=== PATIENT | female | born 1955 | race Caucasian/White ===

== ENCOUNTER 2018-10-05 14:27 | Emergency (ER) | payer OTHER ==
[~2018-10-05] VITALS: Ht 132.1 cm; Wt 71.8 kg
[2018-10-05 14:37] VITALS: BP 156/97
--- NOTE | 2018-10-05 16:26 | NUR ---
PT AMBULATED TO BED 1
--- NOTE | 2018-10-05 16:30 | NUR ---
c/o posterior headache with nausea x 1 month denies injury ---insomnia, fatigue hx---dm, asthma, htn, arthritis, hyperlipidemia rx----basaglar, remicade, humalog insulin, glipizide, losartan, hctz, amitriptyline, daliresp, montelukast, amlodipine, asa, apriso, donepezil, naproxen, ropinirole, tylenol, methotrexate
[2018-10-05] MEDS ORDERED: PROMETHAZINE 25 MG/ML VIAL IM ONE (17:05)
[2018-10-05] MEDS ORDERED: MORPHINE SULFATE 2 MG/ML SYR IM ONE (17:05)
[2018-10-05] MEDS ORDERED: KETOROLAC 60 MG/2 ML VIAL IM ONE (17:05)
[2018-10-05] MEDS ORDERED: MORPHINE SULFATE 4 MG/ML SYR ONE ×2 (17:22→17:36)
--- NOTE | 2018-10-05 18:30 | NUR ---
PATIENT RESTING AT THIS TIME. NO SIGNS OF DISTRESS.
[2018-10-05 19:30] VITALS: BP 140/85
--- NOTE | 2018-10-05 19:30 | NUR ---
Patient discharged with v/s stable. Written and verbal after care instructions given and explained. Patient alert, oriented and verbalized understanding of instructions. Ambulatory with steady gait. All questions addressed prior to discharge. ID band removed. Patient advised to follow up with PMD. Rx of FIORICET [id number] given. Patient educated on indication of medication including possible reaction and side effects. Opportunity to ask questions provided and answered.
== END 2018-10-05 19:30 | disposition home or self-care (01) ==
LOC: MED 14:27
DX: G44.229 Chronic tension-type headache, not intractable (principal); Z86.73 Personal history of transient ischemic attack (TIA), and cerebral infarction without residual deficits
CPT/HCPCS: 70450; 96372; 99284; J1885; J2270; J2550

== ENCOUNTER 2019-12-06 16:41 | Emergency (ER) | payer OTHER ==
[~2019-12-06] VITALS: Ht 139.7 cm; Wt 76.9 kg
[2019-12-06 16:53] VITALS: BP 149/97
--- NOTE | 2019-12-06 17:30 | NUR ---
BIB SELF C/O SOB, COUGH, SORE THROAT, CHEST PAIN X 3 DAYS. TOOK ASHTMA MEDICATION W/O RELIEF .PT AWAKE ,ALERT, AFEBRILE , AMBULATORY WITH STEADY GAIT. SCE , CBS, NICRD HX: ASTHMA
[2019-12-06] MEDS: ALBUTEROL 0.083% 2.5 MG/3 ML NEBU INH ONE (17:37)
[2019-12-06] MEDS: IPRATROPIUM 0.02% 0.5 MG/2.5 ML NEBU INH ONE (17:37)
--- NOTE | 2019-12-06 17:37 | NUR ---
[facility]AT[facility] DRUGS GIVEN ORDERED ENCOURAGED PATIENT FOR INTERMITENT DEEP BREATHING DURING THERAPY
--- NOTE | 2019-12-06 17:40 | NUR ---
RT AT BEDSIDE.
[2019-12-06] MEDS: predniSONE 20 MG TAB PO ONE (17:47)
--- NOTE | 2019-12-06 18:05 | NUR ---
RT DONE WITH BREATHING TREATMENT.
--- NOTE | 2019-12-06 18:27 | NUR ---
Pt report received from PAZ Ferguson. Transfer of care at this time.
--- NOTE | 2019-12-06 18:27 | NUR ---
GAVE REPORT TO PAZ KILGORE .PT VS STABLE O2 SAT AT 100 PERCENT.PT AWAKE, ALERT.
[2019-12-06 19:25] VITALS: BP 119/66
--- NOTE | 2019-12-06 19:25 | NUR ---
Patient discharged with v/s stable. Written and verbal after care instructions given and explained. Patient alert, oriented and verbalized understanding of instructions. Ambulatory with steady gait. All questions addressed prior to discharge. ID band removed. Patient advised to follow up with PMD. Rx of albuterol, prednisone, tamiflu, and zofran given. Patient educated on indication of medication including possible reaction and side effects. Opportunity to ask questions provided and answered.
[2019-12-06] MEDS: OSELTAMIVIR PHOSPHATE 75 MG CAP PO ONE (19:36)
== END 2019-12-06 19:25 | disposition home or self-care (01) ==
LOC: MED 16:41
DX: J11.1 Influenza due to unidentified influenza virus with other respiratory manifestations (principal); J45.901 Unspecified asthma with (acute) exacerbation; E11.9 Type 2 diabetes mellitus without complications; I10 Essential (primary) hypertension; Z90.49 Acquired absence of other specified parts of digestive tract; Z98.890 Other specified postprocedural states
CPT/HCPCS: 71045; 87804; 94640; 99284; J7512; J7613; J7644

== ENCOUNTER 2019-12-12 16:38 | Emergency (ER) | payer OTHER ==
[~2019-12-12] VITALS: Ht 139.7 cm; Wt 74.8 kg
[2019-12-12 16:55] VITALS: BP 146/87
--- NOTE | 2019-12-12 17:00 | NUR ---
64 Y/O F C/O LOWER ABDOMINAL PAIN 6/10 WITH FEVER X 1 DAY. TEMPERATURE IN THE ED IS 99.5. PT DENIES N/V. PT ABDOMEN IS SOFT, ABDOMEN IS TENDER TO TOUCH, BOWEL SOUNDS PRESENT IN ALL FOUR QUADRANTS. PT AMBULATED TO RESTROOM WITHOUT DIFFICULTY TO GIVE URINE SAMPLE. POSITIONED FOR COMFORT, BED LOWERED, SIDE RAIL X [address] NKA
--- NOTE | 2019-12-12 17:00 | NUR ---
PT W/C ASSISTED TO BED 1.
[2019-12-12] MEDS ORDERED: IBUPROFEN 600 MG TAB PO ONE (17:45)
[2019-12-12 18:41] VITALS: BP 146/87
--- NOTE | 2019-12-12 18:41 | NUR ---
Patient discharged with v/s stable. Written and verbal after care instructions given and explained. Patient alert, oriented and verbalized understanding of instructions. Ambulatory with steady gait. All questions addressed prior to discharge. ID band removed. Patient advised to follow up with PMD. Rx of MOTRIN, TAMIFLU, TYLENOL, MACROBID given. Patient educated on indication of medication including possible reaction and side effects. Opportunity to ask questions provided and answered.
== END 2019-12-12 18:41 | disposition home or self-care (01) ==
LOC: MED 16:38
DX: J11.1 Influenza due to unidentified influenza virus with other respiratory manifestations (principal); J45.909 Unspecified asthma, uncomplicated; E11.9 Type 2 diabetes mellitus without complications; I10 Essential (primary) hypertension
CPT/HCPCS: 71045; 81002; 87804; 99284; Q0092

== ENCOUNTER 2020-01-27 04:50 | Emergency (ER) | payer OTHER ==
[~2020-01-27] VITALS: Ht 152.4 cm; Wt 73.9 kg
[2020-01-27 04:55] VITALS: BP 143/93
--- NOTE | 2020-01-27 05:00 | NUR ---
PT AMBULATED TO BED #7
--- NOTE | 2020-01-27 05:05 | NUR ---
BS: 164. MADE AWARE. NO NEW ORDERS AT THIS TIME.
--- NOTE | 2020-01-27 05:05 | NUR ---
PT 64 Y/O FEMALE BIB SELF FOR C/O 1010 LUQ AND PAIN RADIATING TO L SIDE X 5 DAYS. PT AAOX 4. PER PT PAIN,"COMES AND GOES." ABD IS ROUND, SOFT, AND TENDER TO TOUCH. PT ALSO HAS C/O NAUSEA, BLOATING, AND CONSTIPATION. BS PRESENT X 4. PT STATES LAST BM WAS 01/26/20 BUT WAS SMALL AND HARD. AFEBRILE. PT RESPIRATIONS ARE EVEN AND UNLABORED. BED LOCKED AND IN LOWEST POSITION. MEDHX: HTN, DM TYPE II ALLERGIES: NKA
--- NOTE | 2020-01-27 05:05 | NUR ---
PT DAUGHTER AT BEDSIDE.
[2020-01-27] MEDS ORDERED: ONDANSETRON 4 MG/2 ML VIAL IVP ONE (05:15)
[2020-01-27] MEDS ORDERED: MORPHINE SULFATE 2 MG/ML SYR IVP ONE (05:15)
--- NOTE | 2020-01-27 05:32 | NUR ---
IV PLACED IN L AC 20G. IV SITE IS PATENT. NO SWELLING OR C/O PAIN AT SITE. LABS COLLECTED.
--- NOTE | 2020-01-27 05:55 | NUR ---
IV SITE PATENT. MOPHINE 2MG, ZOFRAN 4 MG, GIVEN FOR 10/10 ABD PAIN AND NAUSEA.
[2020-01-27 06:17] LABS: APPEARANCE,URINE CLEAR (CLEAR); BILIRUBIN,URINE NEGATIVE (NEGATIVE); BLOOD, URINE TRACE-I (NEGATIVE); COLOR,URINE YELLOW (YELLOW); LEUKOCYTE ESTERASE ,URINE 3+ (NEGATIVE); NITRITE, URINE NEGATIVE (NEGATIVE); PH,URINE 6.5 (5.0-9.0); UGLUCOSE NEGATIVE (NEGATIVE)
[2020-01-27 06:23] LABS: BASOPHILS # (AUTO) 0.1 K/uL (0.00-0.22); EOSINOPHILS # (AUTO) 0.9 K/uL (0-0.4); HEMATOCRIT 43.4 % (36-48); HEMOGLOBIN 14.7 g/dL (12.0-16.0); LYMPHOCYTES % (AUTO) 15.7 % (20.5-51.1); MEAN CORPUSCULAR HEMOGLOBIN 28 pg (27-31); MEAN CORPUSCULAR HGB CONC 34 g/dL (33-37); MEAN CORPUSCULAR VOLUME 83.3 fL (80-94); MONOCYTES # (AUTO) 0.4 K/uL (0.8-1.0); MONOCYTES % (AUTO) 6.9 % (1.7-9.3); NEUTROPHILS # (AUTO) 3.9 K/uL (1.8-7.7); NEUTROPHILS % (AUTO) 62.4 % (42.2-75.2); PLATELET COUNT (AUTO) 253 K/uL (140-450); RED CELL DISTRIBUTION WIDTH 16.9 % (11.6-13.7); WHITE BLOOD COUNT (AUTO) 6.2 K/uL (4.8-10.8)
[2020-01-27 06:37] LABS: ALBUMIN 3.9 g/dL (3.4-5.0); ANION GAP 9.1 (8-16); CARBON DIOXIDE 31.7 mmol/L (21-32); CREATININE 1.2 mg/dL (0.6-1.3); POTASSIUM 3.8 mmol/L (3.5-5.1); TOTAL BILIRUBIN 0.3 mg/dL (0.0-1.0)
--- NOTE | 2020-01-27 06:42 | NUR ---
PT TAKEN TO CT VIA W/C.
[2020-01-27 06:45] LABS: RBC,URINE 0-5 /HPF (0-5); WBC,URINE 80-100 /HPF (0-5)
--- NOTE | 2020-01-27 06:57 | NUR ---
PT RETURNED FROM CT VIA W/C. PT ABMBULATED TO BED WITH STEADY GAIT.
--- NOTE | 2020-01-27 06:59 | NUR ---
PT AMBULATED TO RESTROOM WITH STEADY GAIT.
--- NOTE | 2020-01-27 07:09 | NUR ---
REPORT GIVEN TO GLORY MULLEN. CONTINUATION OF CARE.
--- NOTE | 2020-01-27 07:41 | NUR ---
Pt resting in bed, 5/10 pain. rr even and unlabored.
[2020-01-27] MEDS ORDERED: NACL 0.9% 1,000 ML IV ONE (08:05)
[2020-01-27] MEDS ORDERED: cefTRIAXone 1,000 MG VIAL ONE (08:11)
--- NOTE | 2020-01-27 08:15 | NUR ---
Dr. Jackson is evaluating the patient at bedside.
[2020-01-27] MEDS ORDERED: AMLO10TA PO (09:03)
[2020-01-27] MEDS ORDERED: HYDR25TA32 PO (09:06)
[2020-01-27] MEDS ORDERED: HUM SUBQ (09:07)
[2020-01-27] MEDS ORDERED: INSU100S22 SUBQ (09:09)
[2020-01-27] MEDS ORDERED: MORPHINE SULFATE 4 MG/ML SYR IVP ONE (09:40)
--- NOTE | 2020-01-27 09:40 | NUR ---
informed dr potter pt c/o 07/06 pain
--- NOTE | 2020-01-27 09:53 | NUR ---
MORPHINE IVP ADMINISTERED FOR PT PAINS
--- NOTE | 2020-01-27 10:18 | NUR ---
PT STATES NO PAIN AT THIS TIME
--- NOTE | 2020-01-27 10:49 | NUR ---
Dr. Apodaca is evaluating the patient at bedside.
--- NOTE | 2020-01-27 10:54 | NUR ---
DR DELGADO AT BEDSIDE, STATES PT WILL BE TRANSFERED
--- NOTE | 2020-01-27 12:00 | NUR ---
PT DECLINED TO BE TRANSFERRED TO [facility] FOR UROLOGY CONSULT/ EVAL. ALSO SPOKE TO PTS DAUGHTER ADELFO OVER THE PHONE AND BOTH DECLINE TRANSFER. PT SIGNED AMA FORM. DR. ASENCIO MADE AWARE.
--- NOTE | 2020-01-27 12:16 | NUR ---
Patient discharged with v/s stable. Written and verbal after care instructions given and explained. Patient alert, oriented and verbalized understanding of instructions. Ambulatory with steady gait. All questions addressed prior to discharge. ID band removed. Patient advised to follow up with PMD. Rx of MOTRIN, CIPRO, AND NORCO given. Patient educated on indication of medication including possible reaction and side effects. Opportunity to ask questions provided and answered. PT AND USMAN EMANUEL ADVISED TO FOLLOW UP WITH PCP AFTER PT SIGNED AMA FORM. DR. ASENCIO MADE AWARE.
[2020-01-27 12:17] VITALS: BP 161/85
== END 2020-01-27 12:16 | disposition left against medical advice (07) ==
LOC: MED 04:50
DX: N20.0 Calculus of kidney (principal); N39.0 Urinary tract infection, site not specified; N28.9 Disorder of kidney and ureter, unspecified; I10 Essential (primary) hypertension; E11.9 Type 2 diabetes mellitus without complications; E66.9 Obesity, unspecified; R91.8 Other nonspecific abnormal finding of lung field; Z98.890 Other specified postprocedural states
CPT/HCPCS: 36415; 74177; 80053; 81001; 83690; 85025; 87040; 87086; 96365; 96375; 96376; 99284; J0696; J2270; J2405; J7030; Q9967

== ENCOUNTER 2020-05-07 16:53 | Emergency (ER) | payer OTHER ==
[~2020-05-07] VITALS: Ht 152.4 cm; Wt 75.3 kg
[~2020-05-07 16:53] MED LIST: AMLO10TA PO; HUM SUBQ; HYDR25TA32 PO; INSU100S22 SUBQ
[2020-05-07 16:59] VITALS: BP 157/102
--- NOTE | 2020-05-07 17:06 | NUR ---
Patient ambulated to bed 4.
--- NOTE | 2020-05-07 17:17 | NUR ---
Patient being evaluated by DR CHENG at bedside.
[2020-05-07] MEDS ORDERED: ONDANSETRON 4 MG/2 ML VIAL IVP ONE (17:25)
[2020-05-07] MEDS ORDERED: KETOROLAC 30 MG/ML VIAL IVP ONE (17:25)
--- NOTE | 2020-05-07 17:28 | NUR ---
65 Y/O F C/C RUQ ABDOMINAL PAIN 07/06, PINS SENSATION, NON RADIATING, ALLEVIATING FACTORS REST, EXARCERBATING FACTORS EATING AND CONSTIPATION X8 DAYS. PER PT PAIN HAS BEEN PROGRESSIVELY WORSE, FURTHER COMPLAINTS OF CONSTIPATION, PT TAKING LAXATIVES WITH SMALL BM YESTERDAY AND TODAY. PER PT ABNORMAL BM. WNL. PT NKA. HX HTN,DM,ASTHMA,ARTHRITIS. SX HERNIA. DOES NOT RECALL RX. NO NVD. SIDE RAIL X1.
--- NOTE | 2020-05-07 17:45 | NUR ---
US AT BEDSIDE
--- NOTE | 2020-05-07 17:47 | NUR ---
LAB AT BEDSIDE
[2020-05-07 18:02] LABS: APPEARANCE,URINE SL CLOUDY (CLEAR); BILIRUBIN,URINE NEGATIVE (NEGATIVE); BLOOD, URINE NEGATIVE (NEGATIVE); COLOR,URINE YELLOW (YELLOW); LEUKOCYTE ESTERASE ,URINE 1+ (NEGATIVE); NITRITE, URINE NEGATIVE (NEGATIVE); UGLUCOSE NEGATIVE (NEGATIVE)
[2020-05-07 18:24] LABS: RBC,URINE 0-5 /HPF (0-5)
[2020-05-07 18:38] LABS: ANION GAP 9.7 (8-16); CREATININE 1.8 mg/dL (0.6-1.3); POTASSIUM 3.7 mmol/L (3.5-5.1)
[2020-05-07 18:44] LABS: ALBUMIN 3.6 g/dL (3.4-5.0); TOTAL BILIRUBIN 0.2 mg/dL (0.0-1.0)
--- NOTE | 2020-05-07 18:54 | NUR ---
PT RESTING IN BED, SIDE RAIL X1
--- NOTE | 2020-05-07 19:10 | NUR ---
REPORT GIVEN TO SILVESTRE MULLEN FOR CONTINUITY OF CARE
--- NOTE | 2020-05-07 19:11 | NUR ---
RECIVED REPORT FROM LEONOR MULLEN. TRANSFER OF CARE.
[2020-05-07] MEDS ORDERED: NACL 0.9% 1,000 ML IV ONE (19:20)
--- NOTE | 2020-05-07 19:25 | NUR ---
PT AMBLUATED TO RESTROOM WITH STEADY GAIT.
--- NOTE | 2020-05-07 19:40 | NUR ---
PT GIVEN IVF 0.9% NS 1L IN L AC. PT IV SITE PATENT. NO SWELLING, OR C/O PAIN AT SITE.
[2020-05-07 19:46] LABS: BASOPHILS # (AUTO) 0.1 K/uL (0.00-0.22); BASOPHILS % (AUTO) 1.4 % (0.0-2.0); EOSINOPHILS # (AUTO) 0.4 K/uL (0-0.4); EOSINOPHILS % (AUTO) 6.1 % (0.0-4.0); HEMATOCRIT 40.9 % (36-48); HEMOGLOBIN 13.6 g/dL (12.0-16.0); LYMPHOCYTES # (AUTO) 1.3 K/uL (2.5-16.5); LYMPHOCYTES % (AUTO) 22.2 % (20.5-51.1); MEAN CORPUSCULAR HEMOGLOBIN 29 pg (27-31); MEAN CORPUSCULAR HGB CONC 33 g/dL (33-37); MEAN CORPUSCULAR VOLUME 87.1 fL (80-94); MONOCYTES # (AUTO) 0.6 K/uL (0.8-1.0); MONOCYTES % (AUTO) 9.9 % (1.7-9.3); NEUTROPHILS # (AUTO) 3.7 K/uL (1.8-7.7); NEUTROPHILS % (AUTO) 60.4 % (42.2-75.2); PLATELET COUNT (AUTO) 216 K/uL (140-450); RED BLOOD CELL COUNT(AUTO) 4.69 MIL/uL (4.20-5.40); RED CELL DISTRIBUTION WIDTH 16.6 % (11.6-13.7); WHITE BLOOD COUNT (AUTO) 6.1 K/uL (4.8-10.8)
--- NOTE | 2020-05-07 20:39 | NUR ---
PT IN BED LOOKING AT PHONE. CONTINUES TO BE ON ASSOCIATE PROFESSOR OF BIOSTATISTICS. VSS. 0/10 PAIN. IVF RUNNING CONTINOUSLY. IV SITE ASYMPTOMATIC.
[2020-05-07 21:00] VITALS: BP 123/77
--- NOTE | 2020-05-07 21:00 | NUR ---
Patient discharged with v/s stable. Written and verbal after care instructions given and explained. Patient alert, oriented and verbalized understanding of instructions. Ambulatory with steady gait. All questions addressed prior to discharge. ID band removed. Patient advised to follow up with PMD. Rx of NORCO, COLACE given. Patient educated on indication of medication including possible reaction and side effects. Opportunity to ask questions provided and answered.
== END 2020-05-07 21:00 | disposition home or self-care (01) ==
LOC: MED 16:53
DX: R10.11 Right upper quadrant pain (principal); B02.8 Zoster with other complications; E87.1 Hypo-osmolality and hyponatremia; E11.9 Type 2 diabetes mellitus without complications; I10 Essential (primary) hypertension; J45.909 Unspecified asthma, uncomplicated; Z88.8 Allergy status to other drugs, medicaments and biological substances; Z90.49 Acquired absence of other specified parts of digestive tract
CPT/HCPCS: 36415; 76705; 80053; 81001; 83690; 85025; 87086; 87186; 96374; 96375; 99284; J1885; J2405; J7030; Q0092

== ENCOUNTER 2020-07-20 15:06 | Emergency (ER) | payer OTHER ==
[~2020-07-20] VITALS: Ht 144.8 cm; Wt 76.7 kg
[2020-07-20 15:11] VITALS: BP 153/74
[2020-07-20 15:32] VITALS: BP 153/74
--- NOTE | 2020-07-20 15:32 | NUR ---
65 Y/O MALE C/O NECK PAIN X2 WEEKS. PT DENIES ANY ACCIDENT/INJURY. NO DEFORMITY NOTED. NECK IS VERY TENDER AND PT STATES SHE CANNOT MOVE HER HEAD OR SLEEP AT NIGHT D/T PAIN. PT HAS BEEN TAKING TYLENOL AND IBUPROFEN WITH NO RELIEF. RESP EVEN AND UNLABORED. PMH: HTN, DM
[2020-07-20] MEDS ORDERED: KETOROLAC 30 MG/ML VIAL IM ONE (15:35)
[2020-07-20] MEDS ORDERED: diazePAM 5 MG TAB PO ONE (15:35)
--- NOTE | 2020-07-20 16:00 | NUR ---
PATIENT STATES PAIN IS RELIEVED TO A 4/10
--- NOTE | 2020-07-20 16:36 | NUR ---
Patient discharged with v/s stable. Written and verbal after care instructions given and explained. Patient alert, oriented and verbalized understanding of instructions. Ambulatory with steady gait. All questions addressed prior to discharge. ID band removed. Patient advised to follow up with PMD. Rx of FLEXERIL, NAPROSYN given. Patient educated on indication of medication including possible reaction and side effects. Opportunity to ask questions provided and answered.
== END 2020-07-20 16:36 | disposition home or self-care (01) ==
LOC: EDSEX 15:06 → MED 15:06
DX: M54.2 Cervicalgia (principal); M62.838 Other muscle spasm; M54.9 Dorsalgia, unspecified; J45.909 Unspecified asthma, uncomplicated; E11.9 Type 2 diabetes mellitus without complications; I10 Essential (primary) hypertension; Z98.890 Other specified postprocedural states; Z79.4 Long term (current) use of insulin; Z79.899 Other long term (current) drug therapy; Z88.8 Allergy status to other drugs, medicaments and biological substances
CPT/HCPCS: 72040; 96372; 99283; J1885

== ENCOUNTER 2020-10-28 15:49 | Emergency (ER) | payer OTHER ==
[~2020-10-28] VITALS: Ht 142.2 cm; Wt 80.3 kg
[2020-10-28 16:02] VITALS: BP 180/73
--- NOTE | 2020-10-28 16:24 | NUR ---
Patient ambulated to [facility]
--- NOTE | 2020-10-28 16:25 | NUR ---
65 Y/O FEMALE FROM HOME C/O PAIN ON RIGHT SHOULDER, RIGHT UPPER ARM, AND RIGHT FOREARM S/P FALL. NO DEFORMITIES NOTED. PT UNABLE TO MOVE PAIN DUE TO PAIN. 10/10 CONSTANT ACHING PAIN. PT GUARDING SHOULDER. SKIN WARM, DRY, INTACT. VSS
--- NOTE | 2020-10-28 16:28 | NUR ---
Patient taken to XRAY via wheelchair by tech.
--- NOTE | 2020-10-28 16:30 | NUR ---
PT IS TAKEN TO XRAY VIA WC.
--- NOTE | 2020-10-28 16:37 | NUR ---
Patient returned to chair A.
--- NOTE | 2020-10-28 16:44 | NUR ---
PT W/C ASSISTED TO BED 4.
--- NOTE | 2020-10-28 16:56 | NUR ---
Spoke to patients granddaughter jung, states she will call later for information.
[2020-10-28] MEDS ORDERED: MORPHINE SULFATE 4 MG/ML SYR IVP ONE (17:00)
[2020-10-28] MEDS ORDERED: ONDANSETRON 4 MG/2 ML VIAL IVP ONE (17:00)
--- NOTE | 2020-10-28 17:06 | NUR ---
20G IV placed to left ac with good blood return
[2020-10-28] MEDS ORDERED: ETOMIDATE 20 MG/10 ML VIAL IVP ONE (17:15)
[2020-10-28] MEDS ORDERED: MIDAZOLAM 2 MG/2 ML VIAL IVP ONE (17:15)
--- NOTE | 2020-10-28 17:30 | NUR ---
Dr. Lacy at pt bedside for right shoulder reduction.
--- NOTE | 2020-10-28 17:34 | NUR ---
Dr. Lacy completed right shoulder reduction.
--- NOTE | 2020-10-28 17:47 | NUR ---
XR tech at bedside.
[2020-10-28 18:40] VITALS: BP 180/73
--- NOTE | 2020-10-28 18:41 | NUR ---
Patient discharged with v/s stable. Written and verbal after care instructions given and explained. Patient verbalized understanding. Ambulatory with by joanie. All questions addressed prior to discharge. Advised to follow up with PMD.
== END 2020-10-28 18:41 | disposition home or self-care (01) ==
LOC: MED 15:49
DX: S43.004A Unspecified dislocation of right shoulder joint, initial encounter (principal); E11.9 Type 2 diabetes mellitus without complications; I10 Essential (primary) hypertension; J45.909 Unspecified asthma, uncomplicated; Z79.899 Other long term (current) drug therapy; Z88.8 Allergy status to other drugs, medicaments and biological substances; Z88.6 Allergy status to analgesic agent; W19.XXXA Unspecified fall, initial encounter; Y93.89 Activity, other specified; Y92.89 Other specified places as the place of occurrence of the external cause; Y99.8 Other external cause status
CPT/HCPCS: 23650; 73020; 73030; 73060; 96374; 96375; 99152; 99285; J2270; J2405; J3490; 99284; J2250

== ENCOUNTER 2021-01-22 16:23 | Emergency (ER) | payer OTHER ==
[~2021-01-22] VITALS: Ht 132.1 cm; Wt 80.7 kg
[2021-01-22 16:28] VITALS: BP 181/104
--- NOTE | 2021-01-22 16:55 | NUR ---
BIBS from home with c/o REPORTS HIGH BLOOD PRESSURE AT HOME 195/93 DESPITE TAKING BP MEDICATIONS. REPORTS BLURRED VISION, NO [place]TG[place]. MED HX: DM2, HTN, ASTHMA, RX: CARVEDILOL, AMPLODIPINE A, A, O x 4, cooperative. Macedonian speaking only. Movimg all extremities w/o difficulty. HOB elevated. In no acute distress, room air resp even and unlabored. Will continue to monitor and assess. Awaiting evaluation by
[2021-01-22] MEDS ORDERED: MECLIZINE 25 MG TAB PO ONE (17:25)
[2021-01-22] MEDS ORDERED: ENALAPRIL 5 MG TAB PO ONE (17:25)
--- NOTE | 2021-01-22 17:55 | NUR ---
MD at bedside, B/P improved, states dizziness is slightly improved.
[2021-01-22] MEDS ORDERED: MECL-303 PO (18:02)
[2021-01-22 19:00] VITALS: BP 173/89
--- NOTE | 2021-01-22 19:05 | NUR ---
Patient deemed medically stable for discharge by Dr. Jackson. Patient discharged with v/s stable. Written and verbal after care instructions given and explained in [place], patient's daughter translated. Patient asked to take and record B/P 2x/day and note any symptoms. Notify PCP next week of B/P's and symptoms. Patient alert, oriented and verbalized understanding of instructions. Ambulatory with steady gait. All questions addressed prior to discharge. ID band removed. Patient advised to follow up with PMD. Rx of meclizine given, sent to [facility] in [place]. Patient educated on indication of medication including possible reaction and side effects in [place]. Opportunity to ask questions provided and answered. All belongings taken with patient from ED. Addendum: 01/22/21 at 1923 by JACINTO Note by Estefani Elizalde RN
== END 2021-01-22 18:59 | disposition home or self-care (01) ==
LOC: MED 16:23
DX: I10 Essential (primary) hypertension (principal); R42 Dizziness and giddiness; J45.909 Unspecified asthma, uncomplicated; E11.9 Type 2 diabetes mellitus without complications; Z79.899 Other long term (current) drug therapy
CPT/HCPCS: 81002; 99283; J8597

== ENCOUNTER 2021-03-01 06:08 | Emergency (ER) | payer OTHER ==
[~2021-03-01] VITALS: Ht 144.8 cm; Wt 77.1 kg
[~2021-03-01 06:08] MED LIST changes: +MECL-303 PO
[2021-03-01 06:13] VITALS: BP 179/104
--- NOTE | 2021-03-01 06:13 | NUR ---
to bed ambulatory
[2021-03-01] MEDS ORDERED: KETOROLAC 60 MG/2 ML VIAL IM ONE (06:20)
--- NOTE | 2021-03-01 06:26 | NUR ---
66 Y/O FEMALE PRESENTS TO THE ED WITH RIGHT ARM PAIN. PT REPORTS WAKING UP AT AROUND 05:20 WITH UNCONTROLLABLE PAIN. PT REPORTS TAKING ALEVE WHICH DID NOT RELIEVE PAIN. PT PAIN SCALE 10/10. PT IS MOSTLY SURINAM[place] SPEAKING AND DAUGHTER REPORTS THAT THE RIGHT ARM HAS BEEN DISLOCATED 2X AND THE MOST CURRENT DISLOCATION WAS 4-5 MONTHS AGO. PMH: DISLOCATION OF RIGHT ARM, HYPERTENSION, DM2, ASTHMA, ARTHRITIS ALLERGIES: NKA
[2021-03-01] MEDS ORDERED: IBUP-2213 PO (06:32)
[2021-03-01] MEDS ORDERED: ACET-8386 PO (06:32)
--- NOTE | 2021-03-01 06:47 | NUR ---
Dr. Jackson examining patient.
[2021-03-01] MEDS ORDERED: MORPHINE SULFATE 4 MG/ML SYR IM ONE (06:50)
[2021-03-01 06:58] VITALS: BP 179/104
--- NOTE | 2021-03-01 06:58 | NUR ---
Patient discharged with v/s stable. PAIN AT A 5/10. Written and verbal after care instructions given and explained. Patient alert, oriented and verbalized understanding of instructions. Ambulatory with steady gait. All questions addressed prior to discharge. ID band removed. Patient advised to follow up with PMD. Rx of IBUPROFEN AND HYDROCODON-ACETAMINOPHEN given. Patient educated on indication of medication including possible reaction and side effects. Opportunity to ask questions provided and answered.
== END 2021-03-01 06:58 | disposition home or self-care (01) ==
LOC: MED 06:08
DX: M25.511 Pain in right shoulder (principal); J45.909 Unspecified asthma, uncomplicated; E11.9 Type 2 diabetes mellitus without complications; I10 Essential (primary) hypertension; Z90.49 Acquired absence of other specified parts of digestive tract; Z79.899 Other long term (current) drug therapy
CPT/HCPCS: 96372; 99284; J1885; J2270

== ENCOUNTER 2021-03-02 15:17 | Emergency (ER) | payer OTHER ==
[~2021-03-02] VITALS: Ht 144.8 cm; Wt 77.1 kg
[~2021-03-02 15:17] MED LIST changes: +ACET-8386 PO; +IBUP-2213 PO
[2021-03-02 15:24] VITALS: BP 175/107
[2021-03-02] MEDS: MORPHINE SULFATE 4 MG/ML SYR IM ONE ×2 (16:29→16:48)
--- NOTE | 2021-03-02 16:51 | NUR ---
66 YEAR OLD FEMALE COMPLAINS OF RIGHT ARM PAIN X 3 DAYS AFTER MECHANICAL FALL. RADIAL PULSE +3, CAP REFILL <3 SEC. PT AOX4, BREATHING EVEN AND UNLABORED, SKIN WARM AND DRY. BED IN LOWEST POSITION, LOCKED, BED RAIL UPX1. PMH - HTN, HLD, DM2 ALLERGIES - NKA
[2021-03-02] MEDS ORDERED: NACL 0.9% 500 ML IV ONE (16:55)
[2021-03-02] MEDS ORDERED: KETAMINE 500 MG/5 ML VIAL IVP ONE (16:55)
[2021-03-02] MEDS ORDERED: PROPOFOL 200 MG/20 ML VIAL IV ONE (16:55)
--- NOTE | 2021-03-02 17:00 | NUR ---
PT EXPLAINED CONSENT FOR PROCEDURE IN MALAY BY STAFF, PT STATES SHE IS IN TOO MUCH PAIN TO SIGN AFTER ATTEMPTING TO. CONSENT SIGNED BY KATIE MULLEN AND BELLE MULLEN.
--- NOTE | 2021-03-02 17:16 | NUR ---
PER TED TO HOLD PROCEDURE UNTIL 1900 BECAUSE OF RECENT MEAL PT HAD EATEN
[2021-03-02] MEDS ORDERED: fentaNYL citrate 0.05 MG/ML VIAL IVP ONE (18:30)
--- NOTE | 2021-03-02 18:42 | NUR ---
BP 182/94, HR 110. ERMD MADE AWARE
--- NOTE | 2021-03-02 19:17 | NUR ---
RECEIVED REPORT FROM KATIE MULLEN, FOR CONTINUITY OF CARE
[2021-03-02] MEDS ORDERED: KETAMINE 500 MG/5 ML VIAL ONE (19:45)
[2021-03-02] MEDS ORDERED: fentaNYL citrate 0.05 MG/ML VIAL ONE (19:45)
--- NOTE | 2021-03-02 20:14 | NUR ---
START TIME FOR MODERATE SEDATION, RT AT BEDSIDE, ERMD AT BEDSIDE, RN AT BEDSIDE
--- NOTE | 2021-03-02 20:24 | NUR ---
PT STARTS TO WAKE UP FROM MODERATE SEDATION, RN AND RT AT BEDSIDE
--- NOTE | 2021-03-02 20:30 | NUR ---
XRAY AT BEDSIDE
--- NOTE | 2021-03-02 20:37 | NUR ---
END TIME FOR MODERATE SEDATION, RN AND RT AT BEDSIDE; PT IS AWAKE AND RESPONSIVE, A&OX4
[2021-03-02] MEDS ORDERED: LABETALOL 100 MG/20 ML VIAL IVP ONE (21:15)
[2021-03-02 22:37] VITALS: BP 182/74
--- NOTE | 2021-03-02 22:38 | NUR ---
Patient discharged with v/s stable. Written and verbal after care instructions given and explained. Patient verbalized understanding. Wheel Chair Assisted with steady gait. All questions addressed prior to discharge. Advised to follow up with PMD.
--- NOTE | 2021-03-03 19:19 | NUR ---
LATE ENTRY--- 0.9% NS BOLUS DISCONTINUED AT 2044
== END 2021-03-02 22:38 | disposition home or self-care (01) ==
LOC: MED 15:17
DX: S42.001A Fracture of unspecified part of right clavicle, initial encounter for closed fracture (principal); S43.004A Unspecified dislocation of right shoulder joint, initial encounter; W19.XXXA Unspecified fall, initial encounter; Y93.89 Activity, other specified; Y92.89 Other specified places as the place of occurrence of the external cause; Y99.8 Other external cause status
CPT/HCPCS: 23650; 72125; 73030; 73080; 73562; 96361; 96372; 96374; 96375; 99152; 99285; J2270; J2704; J3010; J3490; J7030

== ENCOUNTER 2021-03-24 16:18 | Emergency (ER) | payer OTHER ==
[~2021-03-24] VITALS: Ht 134.6 cm; Wt 78.0 kg
[2021-03-24 16:20] VITALS: BP 154/106
--- NOTE | 2021-03-24 16:23 | NUR ---
PATIENT AMBULATED WITH STEADY GAIT TO BED 8.
--- NOTE | 2021-03-24 16:33 | NUR ---
66 Y/O FEMALE C/O RIGHT SHOULDER PAIN 09/05 DESCRIBES ACHING S/P FALL THIS MORNING AT 1000. PT HAS TAKEN 1500 MG OF TYLENOL THROUGHOUT THE DAY WITH NO RELIEF. PT REPORTS PREVIOUS SHOULDER DISLOCATION ON SAME SHOULDER. PT ABLE TO MOVE EXTREMITY WITH GRIMACING NOTED. PMH: DM, HTN, ARTHRITIS, ASTHMA NKA
--- NOTE | 2021-03-24 17:07 | NUR ---
Dr. Caldera at pt bedside for further evalution.
[2021-03-24] MEDS ORDERED: HYDROcodone/APAP 5/325 MG 1 TAB TAB PO ONE (17:10)
--- NOTE | 2021-03-24 17:29 | NUR ---
lighting technician at pt bedside.
[2021-03-24] MEDS ORDERED: LIDOCAINE MPF 1% 10 MG/ML VIAL INJ ONE ×4 (18:20→18:40)
--- NOTE | 2021-03-24 18:24 | NUR ---
Arturo richardson in ED - 03/24/21 at [email or web address] CANNON AT BEDSIDE USING [employer] INTERPRETATION SERVICES FOR MOHAWK TRANSLATION. ID # FOR STRIP FEEDER JANNY #[id number].
--- NOTE | 2021-03-24 18:24 | NUR ---
DR. CANNON AT BEDSIDE USING [employer] INTERPRETATION SERVICES FOR ARABIC TRANSLATION. ID # FOR CREDIT COLLECTOR JANNY #[id number].
--- NOTE | 2021-03-24 18:56 | NUR ---
Dr. Caldera and VASHTI Bassett at pt bedside for procedure.
--- NOTE | 2021-03-24 19:09 | NUR ---
textile science technician at pt bedside.
--- NOTE | 2021-03-24 19:10 | NUR ---
REPORT RECEIVED FROM PAZ ABEBE.
--- NOTE | 2021-03-24 19:10 | NUR ---
Gave report to PAZ Keyes and Irene MULLEN, transfer of care at this time.
--- NOTE | 2021-03-24 19:11 | NUR ---
XRAY AT BEDSIDE.
--- NOTE | 2021-03-24 19:40 | NUR ---
ERMD AT BEDSIDE FOR MEDICAL PROCEDURE.
--- NOTE | 2021-03-24 19:51 | NUR ---
XRAY AT BEDSIDE.
[2021-03-24] MEDS ORDERED: PROPOFOL 200 MG/20 ML VIAL IV ONE ×2 (20:10→22:45)
--- NOTE | 2021-03-24 20:40 | NUR ---
ERMD AT BEDSIDE SPEAKING W PATIENT REGARDING PATIENT SEDATION.
--- NOTE | 2021-03-24 20:45 | NUR ---
WITNESSED PATIENT SIGNING CONSENT FOR CONSCIOUS SEDATION.
--- NOTE | 2021-03-24 21:41 | NUR ---
PROPOFOL MEDICATION, 30.5MG ADMINISTERED BY DAVIS JEAN. Addendum: 03/25/21 at 0021 by LAZARO PROPOFOL MEDICATION, 35 MG ADMINISTERED BY DAVIS JEAN.
--- NOTE | 2021-03-24 21:46 | NUR ---
ADDITIONAL PROPOFOL ADMINISTERED 29MG BY DAVIS JEAN.
--- NOTE | 2021-03-24 21:56 | NUR ---
PATIENT A0 X 4, RST SCORE 12 PATIENT CURRENTLY IN SEVERE PAIN 06/05. ERMD MADE AWARE.
--- NOTE | 2021-03-24 21:56 | NUR ---
PROCEDURE COMPLETED BY TED AT THIS TIME. RADIOLOGY CALLED FOR VERIFICATION OF PLACEMENT.
[2021-03-24 22:35] LABS: BASOPHILS % (AUTO) 0.6 % (0.0-2.0); EOSINOPHILS # (AUTO) 0.7 K/uL (0-0.4); HEMATOCRIT 42.7 % (36-48); HEMOGLOBIN 14.5 g/dL (12.0-16.0); LYMPHOCYTES # (AUTO) 0.9 K/uL (2.5-16.5); LYMPHOCYTES % (AUTO) 14.8 % (20.5-51.1); MEAN CORPUSCULAR HEMOGLOBIN 31 pg (27-31); MEAN CORPUSCULAR HGB CONC 34 g/dL (33-37); MEAN CORPUSCULAR VOLUME 91.5 fL (80-94); MONOCYTES # (AUTO) 0.7 K/uL (0.8-1.0); NEUTROPHILS # (AUTO) 3.7 K/uL (1.8-7.7); NEUTROPHILS % (AUTO) 61.6 % (42.2-75.2); PLATELET COUNT (AUTO) 223 K/uL (140-450); RED BLOOD CELL COUNT(AUTO) 4.67 MIL/uL (4.20-5.40); RED CELL DISTRIBUTION WIDTH 14.3 % (11.6-13.7); WHITE BLOOD COUNT (AUTO) 6.1 K/uL (4.8-10.8)
[2021-03-24 22:44] LABS: ANION GAP 12.6 (8-16); CARBON DIOXIDE 28.3 mmol/L (21-32); CREATININE 1.6 mg/dL (0.6-1.3); POTASSIUM 3.9 mmol/L (3.5-5.1)
[2021-03-24 22:50] LABS: PROTHROMBIN TIME 9.4 secs (10.8-13.4)
[2021-03-24] MEDS ORDERED: fentaNYL citrate 0.05 MG/ML VIAL IVP ONE (22:50)
--- NOTE | 2021-03-24 22:50 | NUR ---
ORTHO SURGEON AT BEDSIDE SPEAKING W PATIENT REGARDING SECOND ATTEMPT FOR SHOULDER REDUCTION W/ CONSCIOUS SEDATION.
--- NOTE | 2021-03-24 22:55 | NUR ---
WITNESSED CONSENT SIGNED BY PATIENT FOR CONSCIOUS SEDATION FOR SECOND ATTEMPT AT SHOULDER REDUCTION.
--- NOTE | 2021-03-24 22:59 | NUR ---
PROPOFOL 40 MG ADMINISTERED BY DAVIS JEAN.
--- NOTE | 2021-03-24 23:00 | NUR ---
SHOULDER REDUCTION PROCEDURE COMPLETED BY . RADIOLOGY CALLED FOR VERIFICATION.
--- NOTE | 2021-03-24 23:09 | NUR ---
PATIENT A0 X4, CURRENTLY AT PRE-PROCEDURE BASELINE. VSS. NO ACUTE DISTRESS NOTED AT THIS TIME.
[2021-03-24] MEDS ORDERED: ACET-10509 PO (23:20)
--- NOTE | 2021-03-25 00:20 | NUR ---
PT AMBULATED TO RESTROOM W/ STEADY GAIT.
[2021-03-25 00:35] VITALS: BP 130/66
--- NOTE | 2021-03-25 00:35 | NUR ---
Patient discharged with v/s stable. Written and verbal after care instructions given and explained. Patient alert, oriented and verbalized understanding of instructions. Ambulatory with steady gait. All questions addressed prior to discharge. ID band removed. Patient advised to follow up with PMD. Rx of TYLENOL given. Patient educated on indication of medication including possible reaction and side effects. Opportunity to ask questions provided and answered. PER PATIENT REQUEST, PROVIDED EDUCATION ON DIABETES MONITORING.
== END 2021-03-25 00:35 | disposition home or self-care (01) ==
LOC: MED 16:18
DX: S42.141A Displaced fracture of glenoid cavity of scapula, right shoulder, initial encounter for closed fracture (principal); Z20.822 Contact with and (suspected) exposure to COVID-19; S43.004A Unspecified dislocation of right shoulder joint, initial encounter; J45.909 Unspecified asthma, uncomplicated; I10 Essential (primary) hypertension; E11.9 Type 2 diabetes mellitus without complications; Z79.4 Long term (current) use of insulin; Z79.899 Other long term (current) drug therapy; X58.XXXA Exposure to other specified factors, initial encounter; Y93.89 Activity, other specified; Y92.89 Other specified places as the place of occurrence of the external cause; Y99.8 Other external cause status
CPT/HCPCS: 23650; 36415; 73020; 73030; 80048; 82948; 85025; 85610; 86886; 86900; 86901; 87426; 96374; 99152; 99285; J2001; J2704; J3010

== ENCOUNTER 2021-07-19 15:51 | Emergency (ER) | payer OTHER ==
[~2021-07-19] VITALS: Ht 152.4 cm; Wt 78.0 kg
[~2021-07-19 15:51] MED LIST changes: +ACET-10509 PO
[2021-07-19 16:03] VITALS: BP 167/93
[2021-07-19] MEDS ORDERED: HYDROcodone/APAP 5/325 MG 1 TAB TAB PO ONE (17:00)
--- NOTE | 2021-07-19 17:56 | NUR ---
Pt ambulated to bed 02.
--- NOTE | 2021-07-19 18:00 | NUR ---
RECEIVED PATIENT IN BED 2 WITH OBVIOUS DEFORMITY OF LEFT SHOULDER, PATIENT HAS HX OF SHOULDER DISLOCATION WITH REDUCTION IN THE PAST, FELT SHOULDER POP OUT 1 HOUR AGO. RIGHT ARM POSITIONED FOR COMFORT ON PILLOWS, PATIENT WAS MEDICATED WITH NORCO BY CHARGE NURSE. DISTAL CMS INTACT. PER BAKER BENCH (MARYELLEN GILBERT) PATIENT AGREES TO PROCEDURAL SEDATION FOR REPEAT REDUCTION OF RIGHT SHOULDER DISLOCATION. PATIENT AGREES TO SIGN CONSENT. IV ACCESS OBTAINED IN LEFT AC.
--- NOTE | 2021-07-19 18:49 | NUR ---
PER CLYDE Scott, PATIENT APPARENTLY INJURED RIGHT SHOULDER EARLIER, WENT TO CLINIC IN [place], XRAYS WERE DONE, SHE WAS TOLD THEY WOULD REDUCE IT WITHOUT SEDATION SO PATIENT CHOSE TO COME TO ER.
--- NOTE | 2021-07-19 18:51 | NUR ---
CLYDE KINGSTON AT BEDSIDE FOR EXAM AND EVAL, REDUCED SHOULDER WITHOUT SEDATION. FOLLOW UP XRAYS ORDERED. .
--- NOTE | 2021-07-19 19:20 | NUR ---
REPORT RECEIVED FROM PAZ CARLOS FOR CONTINUATION OF CARE AT THIS TIME.
[2021-07-19] MEDS ORDERED: MIDAZOLAM 2 MG/2 ML VIAL IVP ONE (19:35)
[2021-07-19] MEDS ORDERED: ETOMIDATE 20 MG/10 ML VIAL IVP ONE (19:35)
--- NOTE | 2021-07-19 19:55 | NUR ---
PATIENT LAYING IN BED AWAKE, HOB ELEVATED. BED LOCKED IN LOWEST POSITION, X2 SIDERAILS UP FOR PATIENT SAFETY. PATIENT REPORTS 7/10 PAIN TO R SHOULDER AND HEADACHE. RADIAL PULSES +2, CAP REFIL <3SEC, BREATHING EVEN AND UNLABORED. PATIENT BLOOD PRESSURE AT 194/108, REPEAT BLOOD PRESSURE AT 206/107. DR. SWANSON AND SAMANTHA LA MADE AWARE. PER DR. MORENITA LA ADMINISTER 1MG OF VERSED.
--- NOTE | 2021-07-19 20:20 | NUR ---
procedural sedation for closed reduction of right shoulder performed at bedside by Dr. Lacy and ABHINAV Bassett. consents verified and signed pre-procedure. , Stephy MULLEN, Sondra MILLERP, Dr. Lacy and Serjio LA, all at bedside during procedure. pt was medicated with 1mg of versed and 10mg of etomidate. Team time out performed pre-procedure for verification.
--- NOTE | 2021-07-19 20:25 | NUR ---
Closed reduction finished and performed by Dr. heck and Serjio KINGSTON. pt remains at lula of 9. continuous monitoring in place until baseline.
[2021-07-19] MEDS ORDERED: LABETALOL 100 MG/20 ML VIAL IVP ONE (20:40)
--- NOTE | 2021-07-19 20:40 | NUR ---
PATIENT BACK TO BEDSIDE W JERICHO SCORE OF 12. ERMD AT BEDSIDE, PATIENT OK FOR DISCHARGE.
[2021-07-19] MEDS ORDERED: NAPR-54 PO (20:46)
[2021-07-19 21:05] VITALS: BP 151/91
== END 2021-07-19 21:05 | disposition home or self-care (01) ==
LOC: MED 15:51
DX: S43.004A Unspecified dislocation of right shoulder joint, initial encounter (principal); J45.909 Unspecified asthma, uncomplicated; I10 Essential (primary) hypertension; E11.9 Type 2 diabetes mellitus without complications; Z79.899 Other long term (current) drug therapy; Z79.4 Long term (current) use of insulin; Z79.1 Long term (current) use of non-steroidal anti-inflammatories (NSAID); Z79.891 Long term (current) use of opiate analgesic; W18.40XA Slipping, tripping and stumbling without falling, unspecified, initial encounter; Y93.89 Activity, other specified; Y92.89 Other specified places as the place of occurrence of the external cause; Y99.8 Other external cause status
CPT/HCPCS: 23650; 73030; 73060; 99285; J2250; J3490

== ENCOUNTER 2022-04-15 17:43 | Emergency (ER) | payer OTHER ==
[~2022-04-15] VITALS: Ht 149.9 cm; Wt 75.7 kg
[~2022-04-15 17:43] MED LIST changes: +NAPR-54 PO
[2022-04-15 17:45] VITALS: BP 150/78
[2022-04-15] MEDS ORDERED: ONDANSETRON 4 MG ODT PO ONE (18:15)
[2022-04-15] MEDS ORDERED: MORPHINE SULFATE 4 MG/ML SYR IM ONE (18:15)
--- NOTE | 2022-04-15 19:37 | NUR ---
REPORT GIVEN TO NANY CANALES. TRANSFER OF CARE
[2022-04-15] MEDS ORDERED: SULF-59 PO (19:38)
[2022-04-15] MEDS ORDERED: NAPR-54 PO (19:38)
[2022-04-15] MEDS ORDERED: ONDA-188 SL (19:43)
[2022-04-15 20:18] VITALS: BP 112/65
--- NOTE | 2022-04-15 20:22 | NUR ---
Note undone in EDM - 04/15/22 at 2027 by LUCITA 1937-67 Y O FEMALE BIB SELF FOR BACK PAIN, HEAD ACHE , AND NAUSEA X TODAY. PT HAS A HISTORY OF DM, HTN. PT IS A&0 X4 PATIENT PRESENTS TO ED WITH . PT STATES . DENIES N/V/D; SKIN IS PINK/WARM/DRY; AAOX4 WITH EVEN AND STEADY GAIT; LUNGS CLEAR BL; HR EVEN AND REGULAR; PT DENIES ANY FEVER, CP, SOB, OR COUGH AT THIS TIME; PATIENT STATES PAIN OF 0/10 AT THIS TIME; VSS; PATIENT POSITIONED FOR COMFORT; HOB ELEVATED; BEDRAILS UP X2; BED DOWN. ER MD MADE AWARE OF PT STATUS.
--- NOTE | 2022-04-15 20:28 | NUR ---
2002- 67 Y O FEMALE BIB SELF FOR BACK PAIN, HEAD ACHE , AND NAUSEA X TODAY. PT HAS A HISTORY OF DM, HTN. DENIES V/D; SKIN IS PINK/WARM/DRY; AAOX4 WITH EVEN AND STEADY GAIT; LUNGS CLEAR BL; HR EVEN AND REGULAR; PT DENIES ANY FEVER, CP, SOB, OR COUGH AT THIS TIME; PATIENT STATES PAIN OF 5/10 AT THIS TIME. VSS; PATIENT POSITIONED FOR COMFORT; HOB ELEVATED; BEDRAILS UP X2; BED DOWN. ER MD MADE AWARE OF PT STATUS.
--- NOTE | 2022-04-15 20:33 | NUR ---
The patient's care was reviewed and supervised by Jessy Harmon RN.
--- NOTE | 2022-04-15 20:33 | NUR ---
2018- Patient discharged with v/s stable. Written and verbal after care instructions given and explained. Patient alert, oriented and verbalized understanding of instructions. Ambulatory with steady gait. All questions addressed prior to discharge. ID band removed. Patient advised to follow up with PMD. Rx of NAPROSYN, BACTRIM given. Opportunity to ask questions provided and answered.
== END 2022-04-15 20:18 | disposition home or self-care (01) ==
LOC: MED 17:43
DX: N39.0 Urinary tract infection, site not specified (principal); M54.50 Low back pain, unspecified; R11.0 Nausea; J45.909 Unspecified asthma, uncomplicated; E11.9 Type 2 diabetes mellitus without complications; I10 Essential (primary) hypertension; Z79.899 Other long term (current) drug therapy; Z79.4 Long term (current) use of insulin
CPT/HCPCS: 81002; 96372; 99283; J2270; Q0162

== ENCOUNTER 2022-04-19 15:52 | Emergency (ER) | payer OTHER ==
[~2022-04-19] VITALS: Ht 139.7 cm; Wt 76.4 kg
[~2022-04-19 15:52] MED LIST changes: +ONDA-188 SL; +SULF-59 PO
[2022-04-19 16:03] VITALS: BP 136/81
--- NOTE | 2022-04-19 16:10 | NUR ---
PT AMBULATED TO BED 03.
[2022-04-19] MEDS ORDERED: DICYCLOMINE HCL LIQUID 10 MG/5 ML UDC ONE (16:23)
[2022-04-19] MEDS ORDERED: ALUMINUM HYD/MAG/SIMETHICONE 30 ML UDC ONE (16:23)
[2022-04-19] MEDS: KETOROLAC 60 MG/2 ML VIAL IM ONE (16:30)
[2022-04-19] MEDS: DICYCLOMINE HCL LIQUID 20 MG, ALUMINUM HYD/MAG/SIMETHICONE 30 ML, LIDOCAINE VISCOUS 2% ... PO ONE ×3 (16:32)
[2022-04-19] MEDS ORDERED: ACET-8386 PO (16:47)
[2022-04-19] MEDS ORDERED: OMEP40EC24 PO (16:47)
--- NOTE | 2022-04-19 17:16 | NUR ---
Patient discharged with v/s stable. Written and verbal after care instructions FOR ABDOMINAL PAIN given and explained. Patient alert, oriented and verbalized understanding of instructions. Ambulatory with steady gait. All questions addressed prior to discharge. ID band removed. Patient advised to follow up with PMD. Rx of HYDROCONE AND OMEPRAZOLE given. Opportunity to ask questions provided and answered.
--- NOTE | 2022-04-19 17:17 | NUR ---
Chart checked and completed. The patient's care was reviewed and supervised by Edita Dawn RN.
== END 2022-04-19 17:16 | disposition home or self-care (01) ==
LOC: MED 15:52
DX: R10.13 Epigastric pain (principal); J45.909 Unspecified asthma, uncomplicated; I10 Essential (primary) hypertension; E11.9 Type 2 diabetes mellitus without complications; Z90.49 Acquired absence of other specified parts of digestive tract; Z79.4 Long term (current) use of insulin; Z79.899 Other long term (current) drug therapy
CPT/HCPCS: 81002; 82948; 96372; 99283; J1885

== ENCOUNTER 2022-05-06 18:49 | Emergency (ER) | payer OTHER ==
[~2022-05-06] VITALS: Ht 139.7 cm; Wt 75.3 kg
[~2022-05-06 18:49] MED LIST changes: +OMEP40EC24 PO
[2022-05-06 19:15] VITALS: BP 156/82
--- NOTE | 2022-05-06 19:21 | NUR ---
PATIENT TO LOBBY
--- NOTE | 2022-05-06 19:41 | NUR ---
PT TAKEN TO ER BED 06
--- NOTE | 2022-05-06 19:49 | NUR ---
MD ORTIZ AT BEDSIDE
[2022-05-06] MEDS ORDERED: FAMOTIDINE 20 MG TAB PO ONE (20:05)
[2022-05-06] MEDS ORDERED: DICYCLOMINE HCL LIQUID 20 MG, ALUMINUM HYD/MAG/SIMETHICONE 30 ML, LIDOCAINE VISCOUS 2% ... PO ONE ×3 (20:05)
[2022-05-06 20:22] LABS: BASOPHILS # (AUTO) 0.1 K/uL (0.00-0.22); BASOPHILS % (AUTO) 0.8 % (0.0-2.0); EOSINOPHILS # (AUTO) 1.8 K/uL (0-0.4); EOSINOPHILS % (AUTO) 18.7 % (0.0-4.0); HEMATOCRIT 35.8 % (36-48); HEMOGLOBIN 11.6 g/dL (12.0-16.0); LYMPHOCYTES # (AUTO) 1.6 K/uL (2.5-16.5); LYMPHOCYTES % (AUTO) 16.6 % (20.5-51.1); MEAN CORPUSCULAR HEMOGLOBIN 29 pg (27-31); MEAN CORPUSCULAR HGB CONC 33 g/dL (33-37); MEAN CORPUSCULAR VOLUME 88.6 fL (80-94); MONOCYTES # (AUTO) 1.1 K/uL (0.8-1.0); MONOCYTES % (AUTO) 11.3 % (1.7-9.3); NEUTROPHILS % (AUTO) 52.6 % (42.2-75.2); PLATELET COUNT (AUTO) 280 K/uL (140-450); RED BLOOD CELL COUNT(AUTO) 4.04 MIL/uL (4.20-5.40); RED CELL DISTRIBUTION WIDTH 16.3 % (11.6-13.7); WHITE BLOOD COUNT (AUTO) 9.5 K/uL (4.8-10.8)
[2022-05-06] MEDS ORDERED: HYDROcodone/APAP 5/325 MG 1 TAB TAB PO ONE (20:25)
[2022-05-06] MEDS ORDERED: ALUMINUM HYD/MAG/SIMETHICONE 30 ML UDC ONE (20:36)
[2022-05-06] MEDS ORDERED: DICYCLOMINE HCL LIQUID 10 MG/5 ML UDC ONE (20:37)
--- NOTE | 2022-05-06 20:48 | NUR ---
67/F BIB SELF C/O ABD PAIN. PATIENT STATED THAT SHE HAS BEEN HAVING GAS AND FEELS BLOATED. MATT STATED SHE HAS 8/10 PAIN X1 WEEK, RADIATING TO BOTH L/R UPPER ABD. SHE SAID SHE WAS HERE X3 WEEKS FOR SIMILAR REASONS, AND GOT DX WITH AN INFECTION. PATIETN STATED HAVING N/V/D. PATIETN RR EVEN AND UNLABORED. NO SIGNS OF DISTRESS. SKIN WARM, DRY, AND CLEAN. PATIETN ABLE TO COMMUNICATE WITHOUT COMPLICATIONS. PATIENT PLACED IN GOWN, BED LOW AND LOCKED, SIDE RAIL UP FOR SAFETY. PMHX DM, GASTRITIS, ARTHRITIS, ASTHMA. HTN. ASTHMA, APNEA MEDS UNABLE TO RECALL AT THIS TIME NKA
[2022-05-06 20:49] LABS: ALBUMIN 3.4 g/dL (3.4-5.0); ANION GAP 11.5 (8-16); ASPARTATE AMINOTRANSFERASE 21 U/L (15-37); CARBON DIOXIDE 24.9 mmol/L (21-32); CHLORIDE 96 mmol/L (98-107); CREATININE 1.5 mg/dL (0.6-1.3); GFR ARICAN-AMERICAN 44 mL/min (>90); GLUCOSE 312 mg/dL (74-106); LIPASE 82 U/L (73-393); POTASSIUM 4.4 mmol/L (3.5-5.1); SODIUM SERUM 128 mmol/L (136-145); TOTAL BILIRUBIN 0.3 mg/dL (0.0-1.0); UREA NITROGEN, BLOOD 15 mg/dL (7-18)
--- NOTE | 2022-05-06 21:28 | NUR ---
PATIENT TAKEN TO RAD VIA W/C
--- NOTE | 2022-05-06 21:35 | NUR ---
PATIENT RETURNED VIA W/C
[2022-05-06] MEDS ORDERED: MAG355OR2 PO (21:51)
[2022-05-06] MEDS ORDERED: IBUP-1842 PO (21:51)
[2022-05-06] MEDS ORDERED: DICL100G5 TP (21:51)
[2022-05-06] MEDS ORDERED: FAMO-90 PO (21:51)
[2022-05-06 22:10] VITALS: BP 108/72
--- NOTE | 2022-05-06 22:10 | NUR ---
Patient discharged with v/s stable. Written and verbal after care instructions given on gastritis and breast pain and explained. Patient alert, oriented and verbalized understanding of instructions. Ambulatory with steady gait. All questions addressed prior to discharge. ID band removed. Patient advised to follow up with PMD. Rx of Diclofenac sodium, pepcid, motrin, and Mag Hyd/Al Hydrox/Simeth given.
--- NOTE | 2022-05-06 22:11 | NUR ---
Chart checked and completed.
== END 2022-05-06 22:10 | disposition home or self-care (01) ==
LOC: MED 18:49
DX: N64.4 Mastodynia (principal); J45.909 Unspecified asthma, uncomplicated; I10 Essential (primary) hypertension; E11.9 Type 2 diabetes mellitus without complications; Z79.899 Other long term (current) drug therapy; Z79.1 Long term (current) use of non-steroidal anti-inflammatories (NSAID); Z79.891 Long term (current) use of opiate analgesic; Z79.2 Long term (current) use of antibiotics; Z79.4 Long term (current) use of insulin
CPT/HCPCS: 36415; 71046; 73030; 80053; 82948; 83690; 84484; 85025; 93005; 99285

== ENCOUNTER 2022-06-05 11:20 | Emergency (ER) | payer OTHER ==
[~2022-06-05] VITALS: Ht 142.2 cm; Wt 75.0 kg
[~2022-06-05 11:20] MED LIST changes: +DICL100G5 TP; +FAMO-90 PO; +IBUP-1842 PO; +MAG355OR2 PO
[2022-06-05 11:29] VITALS: BP 148/77
--- NOTE | 2022-06-05 11:36 | NUR ---
PT AMB TO BED 8.
--- NOTE | 2022-06-05 11:40 | NUR ---
67 Y/O F BIB SELF C/O RIGHT BIG TOE PAIN, REDNESS,SWELLING X 9 DAYS. SKIN IS PINK/WARM/DRY; AAOX4 WITH EVEN AND STEADY GAIT; LUNGS CLEAR BL; HR EVEN AND REGULAR; PATIENT STATES PAIN OF 9/10 AT THIS TIME; VSS; PATIENT POSITIONED FOR COMFORT; HOB ELEVATED; BEDRAILS UP X2; BED DOWN. ER MD MADE AWARE OF PT STATUS.PATIENT DENIES COUGH, CHEST PAIN, N/V, FEVER OR CHILLS. PMH: ASTHMA, DM, HTN NKA
[2022-06-05] MEDS ORDERED: ACET-8386 PO (13:35)
[2022-06-05] MEDS ORDERED: IBUP-2213 PO (13:35)
[2022-06-05] MEDS ORDERED: CEPH-588 PO (13:35)
[2022-06-05 13:49] VITALS: BP 121/74
--- NOTE | 2022-06-05 13:51 | NUR ---
Patient discharged with v/s stable. Written and verbal after care instructions given and explained. Patient alert, oriented and verbalized understanding of instructions. Ambulatory with steady gait. All questions addressed prior to discharge. ID band removed. Patient advised to follow up with PMD. Rx of HYDROCODONE/ACETAMINOPHEN, CEPHALEXIN, AND IBUPROFEN given. Patient educated on indication of medication including possible reaction and side effects. Opportunity to ask questions provided and answered.
== END 2022-06-05 13:49 | disposition home or self-care (01) ==
LOC: MED 11:20
DX: L60.0 Ingrowing nail (principal); L03.031 Cellulitis of right toe; J45.909 Unspecified asthma, uncomplicated; E11.9 Type 2 diabetes mellitus without complications; I10 Essential (primary) hypertension; Z79.899 Other long term (current) drug therapy; Z79.4 Long term (current) use of insulin; Z98.890 Other specified postprocedural states; Z90.49 Acquired absence of other specified parts of digestive tract
CPT/HCPCS: 82948; 99283

== ENCOUNTER 2022-07-26 15:27 | Emergency (ER) | payer OTHER ==
[~2022-07-26] VITALS: Ht 144.8 cm; Wt 75.3 kg
[~2022-07-26 15:27] MED LIST changes: +CEPH-588 PO
[2022-07-26 16:32] VITALS: BP 176/89
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
[2022-07-26] MEDS ORDERED: AMOX-1230 PO (17:02)
[2022-07-26] MEDS ORDERED: IBUP-2213 PO (17:02)
--- NOTE | 2022-07-26 18:33 | NUR ---
PATIENT LEFT WITHOUT D/C WORK/INSTRUCTIONS
== END 2022-07-26 18:33 | disposition home or self-care (01) ==
LOC: MED 15:27
DX: S61.052A Open bite of left thumb without damage to nail, initial encounter (principal); J45.909 Unspecified asthma, uncomplicated; E11.9 Type 2 diabetes mellitus without complications; I10 Essential (primary) hypertension; Z90.49 Acquired absence of other specified parts of digestive tract; Z98.890 Other specified postprocedural states; Z79.4 Long term (current) use of insulin; Z79.899 Other long term (current) drug therapy; W53.21XA Bitten by squirrel, initial encounter; Y93.89 Activity, other specified; Y92.89 Other specified places as the place of occurrence of the external cause; Y99.8 Other external cause status
CPT/HCPCS: 99281

== ENCOUNTER 2022-12-22 10:53 | Emergency (ER) | payer OTHER ==
[~2022-12-22] VITALS: Ht 142.2 cm; Wt 70.9 kg
[~2022-12-22 10:53] MED LIST changes: -ACET-8386 PO; +ACET-8905 PO; +AMOX-1230 PO
[2022-12-22 11:03] VITALS: BP 187/83
--- NOTE | 2022-12-22 11:10 | NUR ---
PT AMB TO BED 12.
--- NOTE | 2022-12-22 11:17 | NUR ---
67/F WALKED IN REFERRED FROM URGENT CARE C/O ELEVATED BP AND HEADACHE. PT BP AT TRIAGE 187/83. AAO4, AMBULATORY, VITALS STABLE, DENIES CP OR DIZZINESS. PMH: DM, ASTHMA, HTN, HERNIA REPAIR.
--- NOTE | 2022-12-22 11:20 | NUR ---
Patient being evaluated by dr angela at bedside.
[2022-12-22] MEDS ORDERED: hydrALAZINE 20 MG/ML VIAL IVP ONE (11:30)
--- NOTE | 2022-12-22 11:52 | NUR ---
JAMES GUSTAFSON, URINE AND BLOOD SAMPLES COLLECTED AND WALKED TO LAB
[2022-12-22 12:44] LABS: BASOPHILS % (AUTO) 0.6 % (0.0-2.0); EOSINOPHILS # (AUTO) 0.8 K/uL (0-0.4); EOSINOPHILS % (AUTO) 15.7 % (0.0-4.0); HEMATOCRIT 36.7 % (36-48); HEMOGLOBIN 12.1 g/dL (12.0-16.0); LYMPHOCYTES % (AUTO) 20.2 % (20.5-51.1); MEAN CORPUSCULAR HEMOGLOBIN 29 pg (27-31); MEAN CORPUSCULAR HGB CONC 33 g/dL (33-37); MEAN CORPUSCULAR VOLUME 86.3 fL (80-94); MONOCYTES # (AUTO) 0.1 K/uL (0.8-1.0); MONOCYTES % (AUTO) 2.5 % (1.7-9.3); PLATELET COUNT (AUTO) 243 K/uL (140-450); RED BLOOD CELL COUNT(AUTO) 4.25 MIL/uL (4.20-5.40)
[2022-12-22 12:49] LABS: BILIRUBIN,URINE NEGATIVE (NEGATIVE); BLOOD, URINE NEGATIVE (NEGATIVE); COLOR,URINE YELLOW (YELLOW); LEUKOCYTE ESTERASE ,URINE NEGATIVE (NEGATIVE); NITRITE, URINE NEGATIVE (NEGATIVE); UGLUCOSE 3+ (NEGATIVE)
[2022-12-22 13:10] VITALS: BP 131/67
[2022-12-22 13:19] LABS: ALBUMIN 3.9 g/dL (3.4-5.0); CARBON DIOXIDE 29.3 mmol/L (21-32); CREATININE 1.1 mg/dL (0.6-1.3); POTASSIUM 4.3 mmol/L (3.5-5.1); TOTAL BILIRUBIN 0.4 mg/dL (0.0-1.0)
[2022-12-22 13:36] LABS: APPEARANCE,URINE CLOUDY (CLEAR)
[2022-12-22 13:37] LABS: RBC,URINE 0-5 /HPF (0-5)
--- NOTE | 2022-12-22 14:00 | NUR ---
Patient discharged with v/s stable. Written and verbal after care instructions given and explained. Patient verbalized understanding. Ambulatory with steady gait. All questions addressed prior to discharge. Advised to follow up with PMD.
== END 2022-12-22 14:00 | disposition home or self-care (01) ==
LOC: MED 10:53
DX: R51.9 Headache, unspecified (principal); Z20.822 Contact with and (suspected) exposure to COVID-19; R11.0 Nausea; R42 Dizziness and giddiness; I12.9 Hypertensive chronic kidney disease with stage 1 through stage 4 chronic kidney disease, or unspecified chronic kidney disease; E11.65 Type 2 diabetes mellitus with hyperglycemia; J45.909 Unspecified asthma, uncomplicated; F17.200 Nicotine dependence, unspecified, uncomplicated; Z79.899 Other long term (current) drug therapy; Z98.890 Other specified postprocedural states; Z79.4 Long term (current) use of insulin; Z87.442 Personal history of urinary calculi
CPT/HCPCS: 36415; 71045; 80053; 81001; 81003; 82948; 83880; 84484; 85025; 87086; 96374; 99285; J0360; Q0092